=== PATIENT | male | born 1950 | race Caucasian/White ===

== ENCOUNTER 2017-10-27 09:24 | Day surgery (SDC) | payer MEDICARE, OTHER ==
[2017-10-27] MEDS: NS 1,000 ML IV (10:00)
[2017-10-27] MEDS ORDERED: LIDOCAINE 2% INJ 100 MG/5 ML SDV (FOR ANES.) As Ordered ×2 (10:41→10:58)
[2017-10-27] MEDS ORDERED: PROPOFOL 500 MG/50 ML VIAL As Ordered (10:41)
[2017-10-27] MEDS ORDERED: PHENYLephrine HCL 500 MCG/5 ML (100MCG/ML) SYRINGE (J2370) As Ordered (10:58)
[2017-10-27] MEDS ORDERED: PROPOFOL 200 MG/20 ML VIAL As Ordered (10:58)
== END 2017-10-27 11:40 | disposition home or self-care (01) ==
LOC: M OPP 09:24
DX: Z12.11 Encounter for screening for malignant neoplasm of colon (principal); Z86.010 Personal history of colon polyps; K59.00 Constipation, unspecified; D12.5 Benign neoplasm of sigmoid colon; K62.1 Rectal polyp; K57.30 Diverticulosis of large intestine without perforation or abscess without bleeding; K64.8 Other hemorrhoids; K64.4 Residual hemorrhoidal skin tags; I10 Essential (primary) hypertension; E78.5 Hyperlipidemia, unspecified; E11.9 Type 2 diabetes mellitus without complications; R12 Heartburn; K21.9 Gastro-esophageal reflux disease without esophagitis; M19.90 Unspecified osteoarthritis, unspecified site; N40.1 Benign prostatic hyperplasia with lower urinary tract symptoms; Z87.891 Personal history of nicotine dependence; Z79.899 Other long term (current) drug therapy; Z79.84 Long term (current) use of oral hypoglycemic drugs; Z80.0 Family history of malignant neoplasm of digestive organs
CPT/HCPCS: 45380

== ENCOUNTER → 2020-07-18 | Outpatient (CLI) | payer MEDICARE, OTHER ==
[~2020-07-18] MED LIST: ESOM1CAP5 PO; FENO145T7 PO; FLOM0.4C39 PO; GLIM2TAB4 PO; QUIN1TAB4 PO; VICT18IN SC
--- NOTE | 2020-07-18 16:13 | REP ---
INDICATION: RLQ PAIN. COMPARISON: CT abdomen pelvis 08/11/2017 TECHNIQUE: Sonographic evaluation of the right groin and adjacent areas. FINDINGS: Is no evidence of a mass or hernia. No bowel loops seen, adenopathy or other acute finding. IMPRESSION: 1. No evidence of inguinal hernia, adenopathy or mass. <Electronically signed by Nolberto Hester > 07/18/20 [id number]
== END ==
LOC: M RAD 14:57
PROVIDERS: ATTEND Surgery
DX: R10.31 Right lower quadrant pain (principal)

== ENCOUNTER → 2025-01-05 | Outpatient (CLI) | payer MEDICARE, OTHER ==
[~2025-01-05] MED LIST changes: +ESOM1CAP20 PO; -ESOM1CAP5 PO; -FLOM0.4C39 PO; +PROHANCE 279.3MG/ML 15ML VIAL ONE; +PROHANCE 279.3MG/ML 5ML VIAL ONE; +TAMS-18 PO
== END ==
LOC: M PLAIMG 09:58
PROVIDERS: ATTEND Physician Assistant
DX: R97.20 Elevated prostate specific antigen [PSA] (principal); R93.89 Abnormal findings on diagnostic imaging of other specified body structures; N42.83 Cyst of prostate
CPT/HCPCS: 72197; A9576